=== PATIENT | female | born 1980 | race African-American/Black ===

== ENCOUNTER 2017-09-05 07:09 | Emergency (ER) | payer MEDICAID ==
[~2017-09-05] VITALS: Ht 165.1 cm; Wt 127.0 kg
[2017-09-05] MEDS ORDERED: HYDROCODONE/ACETAMINOPHEN 5/325MG TABLET PO ONE (09:30)
[2017-09-05 10:10] VITALS: BP 192/99
== END 2017-09-05 10:44 | disposition home or self-care (01) ==
LOC: ER 07:31
DX: K02.9 Dental caries, unspecified (principal); F17.200 Nicotine dependence, unspecified, uncomplicated
CPT/HCPCS: 99283